=== PATIENT | female | born 1955 | race Caucasian/White ===

== ENCOUNTER 2017-03-20 14:08 | Emergency (ER) | payer OTHER, BC ==
[~2017-03-20] VITALS: Ht 149.9 cm; Wt 58.7 kg
[~2017-03-20 14:08] MED LIST: ASPI-435 PO; ATV1 PO; CALC-5 PO; CARB200T2 PO; CHOL1000 PO; FSMD/70 PO; LAMO100T16 PO; MULTCAP7 PO; OMEG10007 PO; PRLSR20 PO; RMR15 PO; RXC5 PO; VALS40TA2 PO; WHITOIN3 OPB
[2017-03-20 14:15] VITALS: TEMP 37; Ht 149.9 cm; Wt 58.7 kg
[2017-03-20] MEDS ORDERED: OXYCODONE HCL IR 5 MG TAB (IMMEDIATE RELEASE) PO STA ×2 (14:27→16:24)
--- NOTE | 2017-03-20 14:52 | EMERGENCY ROOM VISIT NOTE ---
History Report prepared by Bassem: Monica Zaragoza Under the Supervision of: Dr. Srikanth Bustamante M.D. First contact with patient: 14:16 Chief Complaint: FALL Stated Complaint: FELL SORE WRIST, SHOULD AND HEAD History of Present Illness The patient is a 61 year old female who presents to the Emergency Room with complaints of an episode of a fall that occurred just prior to arrival. The patient states she was grocery shopping when she tripped over a curve and fell. She denies loosing consciousness but states she has a headache. The patient notes that she hit her bottom teeth when she fell. She also notes weakness in her extremities. The patient states she has a history of degenerative arthritis and carpal tunnel. She is unaware if her tetanus shot is up to date. Source of History: patient Onset: just prior to arrival Position: other (generalized) Timing: other (episode) Associated Symptoms: + headache, + weakness, No LOC Note: See HPI for pertinent positives & negatives. A total of 10 systems reviewed and were otherwise negative. Review of Systems See HPI for pertinent positives & negatives. A total of 10 systems reviewed and were otherwise negative. Past Medical & Surgical Medical Problems: (1) Arthritis (2) Benign hypertension (3) Blood clots (4) Disorder of eye region (5) Family history: Hypertension (6) History of - depression (7) Lumbar spinal fusion (8) Lumbar stenosis with neurogenic claudication Family History no pertinent family history stated Social History Smoking Status: Never Smoker Alcohol Use: none Drug Use: none Marital Status: single Housing Status: lives with significant other Occupation Status: unemployed Current/Historical Medications Scheduled Aspirin (Aspirin 81), 81 MG PO QAM Calcium-Magnesium W/ Vitamin D (Calcium 500), 500 MG PO QPM Carbamazepine (Epitol), 200 MG PO QAM Cholecalciferol (Vitamin D3), 1 TAB PO QAM Fish Oil (Hamilton-3), 1 CAP PO QAM Lamotrigine (Lamictal), 150 MG PO QAM Mirtazapine (Mirtazapine), 45 MG PO HS Multiple Vitamins W/ Minerals (Eye Vitamins), 1 CAP PO QAM Valsartan (Diovan), 40 MG PO QPM White Petrolatum-Mineral Oil (Genteal Tears Night-Time), 1 APPLN OPB HS Scheduled PRN Oxycodone HCl (Oxycodone HCl), 5 MG PO Q4 PRN for Pain Oxycodone/Acetaminophen 5MG/325MG (Percocet 5MG/325MG), 1-2 TAB PO Q4H PRN for Pain Allergies Coded Allergies: Nickel (Verified Allergy, Mild, RASH, 03/20/17) Topiramate (Verified Adverse Reaction, Severe, PANCREATITIS, 03/20/17) Wheat (Verified Adverse Reaction, Unknown, GAS;DIARRHEA;PAIN, 03/20/17) Physical Exam Vital Signs Date Time Temp Pulse Resp B/P (MAP) Pulse Ox O2 Delivery O2 Flow Rate FiO2 03/20/17 16:56 82 18 141/103 98 03/20/17 16:09 76 16 117/77 98 Room Air 03/20/17 14:15 37.0 91 18 148/95 96 Room Air Physical Exam GENERAL: Patient is uncomfortable appearing. Moderate distress HEENT: No acute trauma, normocephalic atraumatic, mucous membranes moist, no nasal congestion, no scleral icterus. NECK: No stridor, no adenopathy, no meningismus, trachea is midline. LUNGS: No dyspnea. Clear to auscultation and equal bilaterally. No wheeze, no rhonchi. HEART: Regular rate and rhythm. No murmurs, rubs, gallops appreciated. ABDOMEN: Soft, nontender, bowel sounds positive, no masses appreciated, no peritonitis. BACK: No midline tenderness, no CVA tenderness EXTREMITIES: Normal motion all extremities, no cyanosis. Swelling and ecchymosis over right distal forearm extending over right wrist with pain, distal/n/b intact NEUROLOGIC: Alert and oriented, no acute motor or sensory deficits, no focal weakness, cranial nerves grossly intact. SKIN: No rash, no jaundice, no diaphoresis. Abrasions over right forehead, left bridge of nose, and left upper lip Medical Decision & Procedures ER Provider Diagnostic Interpretation: Radiology results and stated below per my review and radiologist interpretation: RIGHT FOREARM 2 VIEWS ROUTINE FINDINGS: There is an acute displaced distal right radial metaphyseal fracture with intra-articular extension which is better depicted on the right wrist radiographs. This associated soft tissue swelling. A lucency projecting of the right radial head. This is likely artifactual. IMPRESSION: 1. Acute displaced distal right radial fracture with intra-articular extension which is better depicted on the right wrist radiographs. Associated soft tissue swelling. 2. Lucency which projects over the right radial head. This is likely artifactual although a nondisplaced fracture could appear similar. If right elbow pain, right elbow radiographs could be obtained. Electronically signed by: Abhijeet Bhardwaj M.D. CT OF THE HEAD WITHOUT CONTRAST FINDINGS: No acute intracranial hemorrhage, midline shift or mass effect is present. Ventricular system is stable. Basilar cisterns are patent. There are no extra axial collections. White matter hypodensity suggests small vessel disease. There may be a small right forehead contusion. There is no calvarial fracture. IMPRESSION: 1. No acute intracranial findings. 2. No calvarial fracture. Electronically signed by: Abhijeet Bhardwaj M.D. RIGHT SHOULDER MIN 2 VIEWS ROUTINE FINDINGS: Alignment of the right shoulder is anatomic. There is no acute fracture. There is mild arthritis of the right acromioclavicular and glenohumeral joints. IMPRESSION: No acute fracture or dislocation of the right shoulder. Electronically signed by: Abhijeet Bhardwaj M.D. RIGHT WRIST MIN 3 VIEWS ROUTINE FINDINGS: There is an acute comminuted mildly displaced distal right radial fracture with intra-articular extension. Chondrocalcinosis is noted within the TFCC. There is severe arthritis of the right first carpometacarpal joint. There is no acute fracture the distal right ulna. IMPRESSION: Acute comminuted mildly displaced distal right radial fracture with intra-articular extension. Electronically signed by: Abhijeet Bhardwaj M.D. Medications Administered Medications (Trade) Dose Ordered Sig/Agustina Route Start Time Stop Time Status Last Admin Dose Admin Oxycodone HCl (Roxicodone Immediate Rel Tab) 5 mg NOW STAT PO 03/20/17 14:27 03/20/17 14:28 DC 03/20/17 14:39 5 MG Oxycodone HCl (Roxicodone Immediate Rel Tab) 5 mg NOW STAT PO 03/20/17 16:24 03/20/17 16:26 DC 03/20/17 16:48 5 MG ED Course 1420: The patient was evaluated in room C9. A complete history and physical exam was performed. 1427: Oxycodone HCl 5 mg PO. 1624: Oxycodone HCL 5 mg PO. 1620: I reevaluated the patient, she is feeling somewhat better but is still sore. The patient will follow up with [facility]. Patient understands the risks of taking narcotics. 1630: Reevaluated the patient. Discussed results and discharge instructions: She verbalized understanding and agreement. The patient is ready for discharge. Medical Decision 61 yr old female arrives with complaint of face and arm injury s/p fall. No LOC nor neuro deficits. Chronic neck pain which she notes unchanged and has no TTP over midline Cervical. Abrasions over face without deformity. CT head given headache and trauma which fortunately was negative. Shoulder, forearm, wrist note mildly displaced distal right radial fracture in to joint. Splint, sling, pain medications, RICE. Discussed risks narcotics. She will follow up with [facility] in 1 week. Reviewed symptoms requiring return. Reviewed post head injury instructions. Not on blood thinners other than asa thus no need to awaken throughout night. [place] Drug Monitoring Program Search Results: patient reviewed within database Drug Monitoring Findings: Sporadic controlled substance prescriptions over the past year. No narcotics since September 2016 Head Trauma GCS Score: 15 Medication Reconcilliation Current Medication List: was personally reviewed by me Blood Pressure Screening Patient's blood pressure: Elevated blood pressure Blood pressure disposition: Elevated BP felt to be situational Impression Primary Impression: Wrist fracture, right Additional Impressions: Fall Nasal contusion Head injury, closed Scribe Attestation The scribe's documentation has been prepared under my direction and personally reviewed by me in its entirety. I confirm that the note above accurately reflects all work, treatment, procedures, and medical decision making performed by me. Departure Information Dispostion Home / Self-Care Prescriptions Oxycodone/Acetaminophen 5MG/325MG (PERCOCET 5MG/325MG) Tab 1-2 TAB PO Q4H Y for Pain, #20 TAB Prov: Srikanth Bustamante M.D. 03/20/17 Referrals Ivy Gan (PCP) Josiah Jalloh D.O. Forms HOME CARE DOCUMENTATION FORM, IMPORTANT VISIT INFORMATION Patient Instructions ED Fx Wrist General, My [facility] Health Problem Qualifiers
--- NOTE | 2017-03-20 15:37 | DIAGNOSTIC IMAGING REPORT ---
CT OF THE HEAD WITHOUT CONTRAST CLINICAL HISTORY: Fall with facial injury. Headache. COMPARISON STUDY: Head CT March 04, 2014. CT DOSE: 537.48 mGy.cm TECHNIQUE: Helical axial images of the head were obtained without IV contrast. Automated exposure control was utilized for the study. A dose lowering technique was utilized adhering to the principles of ALARA. FINDINGS: No acute intracranial hemorrhage, midline shift or mass effect is present. Ventricular system is stable. Basilar cisterns are patent. There are no extra axial collections. White matter hypodensity suggests small vessel disease. There may be a small right forehead contusion. There is no calvarial fracture. IMPRESSION: 1. No acute intracranial findings. 2. No calvarial fracture. Electronically signed by: Abhijeet Bhardwaj M.D. 03/20/2017 3:36 PM Dictated Date/Time: 03/20/2017 3:33 PM
--- NOTE | 2017-03-20 16:08 | DIAGNOSTIC IMAGING REPORT ---
RIGHT SHOULDER MIN 2 VIEWS ROUTINE CLINICAL HISTORY: Right shoulder pain following fall COMPARISON: None FINDINGS: Alignment of the right shoulder is anatomic. There is no acute fracture. There is mild arthritis of the right acromioclavicular and glenohumeral joints. IMPRESSION: No acute fracture or dislocation of the right shoulder. Electronically signed by: Abhijeet Bhardwaj M.D. 03/20/2017 4:07 PM Dictated Date/Time: 03/20/2017 4:06 PM
--- NOTE | 2017-03-20 16:11 | DIAGNOSTIC IMAGING REPORT ---
RIGHT FOREARM 2 VIEWS ROUTINE CLINICAL HISTORY: Right forearm and wrist pain following injury. COMPARISON: Right hand radiographs March 30, 2012. FINDINGS: There is an acute displaced distal right radial metaphyseal fracture with intra-articular extension which is better depicted on the right wrist radiographs. This associated soft tissue swelling. A lucency projecting of the right radial head. This is likely artifactual. IMPRESSION: 1. Acute displaced distal right radial fracture with intra-articular extension which is better depicted on the right wrist radiographs. Associated soft tissue swelling. 2. Lucency which projects over the right radial head. This is likely artifactual although a nondisplaced fracture could appear similar. If right elbow pain, right elbow radiographs could be obtained. Electronically signed by: Abhijeet Bhardwaj M.D. 03/20/2017 4:10 PM Dictated Date/Time: 03/20/2017 4:07 PM
[2017-03-20] MEDS ORDERED: WHITOIN3 OPB (16:13)
[2017-03-20] MEDS ORDERED: RMRS/45 PO (16:13)
[2017-03-20] MEDS ORDERED: OXYC-609 PO (16:13)
--- NOTE | 2017-03-20 16:13 | DIAGNOSTIC IMAGING REPORT ---
RIGHT WRIST MIN 3 VIEWS ROUTINE CLINICAL HISTORY: Right wrist pain following injury. COMPARISON: Right hand radiographs March 30, 2012. FINDINGS: There is an acute comminuted mildly displaced distal right radial fracture with intra-articular extension. Chondrocalcinosis is noted within the TFCC. There is severe arthritis of the right first carpometacarpal joint. There is no acute fracture the distal right ulna. IMPRESSION: Acute comminuted mildly displaced distal right radial fracture with intra-articular extension. Electronically signed by: Abhijeet Bhardwaj M.D. 03/20/2017 4:11 PM Dictated Date/Time: 03/20/2017 4:10 PM
[2017-03-20] MEDS ORDERED: OXYC1TAB3 PO (16:35)
[2017-03-20] MEDS ORDERED: OXYC-57 PO (16:36)
[2017-03-20 16:56] VITALS: BP 141/103; PULSE 82; O2SAT 98
== END 2017-03-20 16:57 | disposition home or self-care (01) ==
LOC: C.EDB 14:11 → C.EDC 16:57
DX: S52.501A Unspecified fracture of the lower end of right radius, initial encounter for closed fracture (principal); S00.33XA Contusion of nose, initial encounter; S09.90XA Unspecified injury of head, initial encounter; W01.0XXA Fall on same level from slipping, tripping and stumbling without subsequent striking against object, initial encounter; Y92.481 Parking lot as the place of occurrence of the external cause; M19.90 Unspecified osteoarthritis, unspecified site; I10 Essential (primary) hypertension; Z86.718 Personal history of other venous thrombosis and embolism; F32.9 Major depressive disorder, single episode, unspecified; M48.06 Spinal stenosis, lumbar region; Z82.49 Family history of ischemic heart disease and other diseases of the circulatory system; Z79.82 Long term (current) use of aspirin; Z79.899 Other long term (current) drug therapy